=== PATIENT | male | born 1925 | race Caucasian/White ===

== ENCOUNTER 2016-08-29 11:59 | Inpatient (IN) | payer MEDICARE, BC ==
--- NOTE | ~2016-08-29 | EKG ---
PATIENT: IAN AUGUSTE UNIT #: [id number] Ventricular Rate: 83 BPM Atrial Rate: 83 BPM P-R Interval: 140 ms QRS Duration: 98 ms Q-T Interval: 374 ms QTC Calculation(Bezet): 439 ms Calculated R [place]: -20 degrees Calculated T [place]: 37 degrees Diagnosis Line: Normal sinus rhythm Diagnosis Line: Normal ECG Diagnosis Line: Diagnosis Line: Confirmed by LEONELA WATTERS MD ([id number]) on Diagnosis Line: 09/01/2016 1:26:00 PM INTERPRETING MD: DUONG GONZALEZ
--- NOTE | ~2016-08-29 | CT71 ---
[facility] A Service [facility] RADIOLOGY TEXT RESULTS PATIENT: IAN AUGUSTE LOCATION: [facility] : [birth year] UNIT #: [id number] AGE: [address]: Shruti Noble MD SEX: M ORDER DR: [id number] [address] [address] [id number] E MR#: [id number] Acc #: [id number] NAME: IAN AUGUSTE : 1925 SEX: M STUDY DATE/TIME: 08/29/2016 12:39 UNIT: SED ROOM: STUDY DESCRIPTION: CT Head Wo Contrast Attending Physician: (Res) Bhargav Bedolla Referring Physician: (Res) Bhargav Bedolla Ordering Physician: (Res) Bhargav Bedolla Primary Care Physician: Tal Zhang M.D. MEDICAL IMAGING REPORT This report is preliminary unless electronic signature is present. EXAM CT head without contrast. INDICATIONS Dizziness for a few days. TECHNIQUE CT of the head was performed without contrast. This CT exam was performed with one or more of the following radiation dose reduction techniques: automatic exposure control, adjustment of mA and/or kV according to patient size, and iterative reconstruction. COMPARISON Comparison is made with 03/09/2015. FINDINGS There are stable chronic white matter changes. There is no evidence for intracranial hemorrhage, acute cortical based infarction, focal mass lesion, or hydrocephalus. The included orbits and paranasal sinuses are unremarkable. The bone windows are unremarkable. IMPRESSION No acute intracranial abnormality. Dictated by... Ayden Schulte M.D. THIS IS AN ELECTRONICALLY VERIFIED REPORT Ayden Schulte M.D. at 08/30/2016 3:48 PM GABE/yaw [facility] A Service [facility] RADIOLOGY TEXT RESULTS PATIENT: IAN AUGUSTE LOCATION: [facility] [id number] : [birth year] UNIT #: [id number] AGE: [address]: Shruti Noble MD SEX: M ORDER DR: TD: 08/29/2016 23:50 JOB #: [id number] MEDICAL IMAGING REPORT Page 1 of 1
--- NOTE | ~2016-08-29 | CO ---
Unit #: [id number] #: [id number] Patient: IAN AUGUSTE [id number] [address] [place], [place] [address] [id number] I MR#: [id number] NAME: IAN AUGUSTE. ROOM: 473 Age: 89 Sex: M Admission Date: 08/29/2016 : 1925 Attending Physician: Shruti Noble M.D. Primary Care Physician: Tal Zhang M.D. CONSULTATION REPORT REASON FOR CONSULTATION Pneumonia. CHIEF COMPLAINT Weakness and patient could not stand up. HISTORY OF PRESENT ILLNESS An 89-year-old male with a past medical history of arthritis, rheumatoid arthritis, Alzheimer, dyslipidemia, anxiety, and depression, presented with the complaint of leg weakness and has been admitted. A CT chest showed patchy infiltrates. I am seeing the patient at bedside. He denies any headache, blurry vision, or chest pain. PAST MEDICAL HISTORY 1. Hypertension. 2. Alzheimer. 3. Gastroesophageal reflux disease. 4. Anxiety and depression. 5. Likely COPD. 6. Prostate hypertrophy. SOCIAL HISTORY Ex-smoker. No alcohol and no drug abuse. FAMILY HISTORY None as per record. MEDICATIONS As per MAR and have been reviewed. ALLERGIES Reviewed. PHYSICAL EXAMINATION VITAL SIGNS: Temperature 98, pulse 87, respirations 12, and blood pressure 130/70. NEUROLOGICAL: Awake, alert, and oriented at baseline. CARDIOVASCULAR: S1 plus S2. RESPIRATORY: Bilateral air entry, bilateral mild rhonchi. GASTROINTESTINAL: Nontender and soft. Bowel sounds positive. EXTREMITIES: No edema. DIAGNOSTIC STUDIES IMAGING: CT chest without contrast showed patchy infiltrates. Unit #: [id number] #: [id number] Patient: IAN AUGUSTE ASSESSMENT 1. Pneumonia. 2. Small pericardial effusion. 3. Spinal stenosis. PLAN At this point, my plan is to continue patient on Levaquin. Order procalcitonin levels and sputum for culture and sensitivity. Continue bronchodilator. GI and DVT prophylaxis. Physical therapy. We will continue to monitor. Please see orders for detailed plans. Thank you very much for this consultation. Dictated by... Nader Braxton TD: 08/30/2016 18:31 JOB #: [id number] CONSULTATION REPORT Page 1 of 1 X Ayesha Vyas MD CONSULTATION REPORT
--- NOTE | ~2016-08-29 | CR72 ---
[facility]. [facility] A Service of [facility] & [facility] RADIOLOGY TEXT RESULTS PATIENT: IAN AUGUSTE LOCATION: [place] [address] : [birth year] UNIT #: [id number] AGE: [address]: Shruti Noble MD SEX: M ORDER DR: [id number] [address] [address] [id number] E MR#: [id number] Acc #: [id number] NAME: IAN AUGUSTE : 1925 SEX: M STUDY DATE/TIME: 08/29/2016 12:49 UNIT: SED ROOM: STUDY DESCRIPTION: CR Chest Single View Portable Attending Physician: (Res) Bhargav Bedolla Referring Physician: (Res) Bhargav Bedolla Ordering Physician: (Res) Bhargav Bedolla Primary Care Physician: Tal Zhang M.D. MEDICAL IMAGING REPORT This report is preliminary unless electronic signature is present. EXAM Portable chest. INDICATION Cough today and dizziness. COMPARISON Comparison with 09/26/2012. FINDINGS There are patchy densities in the right mid and lower zone. Left lung is clear. Heart size is stable. Stable deformity of the left shoulder. IMPRESSION There are hazy densities in the right mid and lower zones which may represent pneumonia. Follow up to clearing is recommended. Dictated by... Ayden Schulte M.D. THIS IS AN ELECTRONICALLY VERIFIED REPORT Ayden Schulte M.D. at 08/30/2016 3:48 PM Guzman TD: 08/29/2016 23:58 JOB #: [id number] MEDICAL IMAGING REPORT Page 1 of 1
--- NOTE | ~2016-08-29 | CT98 ---
[facility] A Service of [facility] RADIOLOGY TEXT RESULTS PATIENT: IAN AUGUSTE LOCATION: [facility] [address]-84 : [birth year] UNIT #: [id number] AGE: [address]: Shruti Noble MD SEX: M ORDER DR: [id number] [address] [address] [id number] E MR#: [id number] Acc #: [id number] NAME: IAN AUGUSTE. : 1925 SEX: M STUDY DATE/TIME: 08/29/2016 12:45 UNIT: SED ROOM: STUDY DESCRIPTION: CT Lumbar Spine Wo Cont Attending Physician: Bhargav Bedolla Referring Physician: Bhargav Bedolla Ordering Physician: Bhargav Bedolla Primary Care Physician: Tal Zhang M.D. MEDICAL IMAGING REPORT This report is preliminary unless electronic signature is present. EXAM CT lumbar spine without HISTORY Weakness for 5 years, back pain for a couple of weeks, dizzy for a few days, dementia and arthritis, history of cancer not otherwise indicated. TECHNIQUE This CT examination was performed with one or more of the following radiation dose reduction techniques: automatic exposure control, adjustment of mA and/or kV according to patient size, and iterative reconstruction. COMMENT CT of the lumbar spine performed in the axial plane followed by sagittal and coronal reconstructed images. No contrast. Plain film for comparison 03/01/2013. Sagittal alignment is essentially normal. There is a broad Schmorl node at the superior endplate of L2 which is probably chronic but better seen on the current CT than on plain films from 2013. If there is concern for recent progression, MRI could be obtained in follow up. There is severe loss of disc height at L3-4 with endplate spondylosis. I suspect some fusion across the L3-4 disc. Multilevel endplate spondylosis present with vacuum disc formation at L2-3 and L5-S1. Multilevel loss of intervertebral disc height present. Seen at the lung bases is parenchymal scarring, bronchiectasis and nonspecific, noncalcified soft tissue at the posteromedial right chest. This is adjacent to the T11 vertebral body and appears to erode or remodel the bone. Though the margins of the bone appear somewhat sclerotic, the concern is raised for slow-growing neoplasm with erosion into the bone. The soft tissue mass is somewhat rounded and measures about 2.5 x 2.1 cm [facility] A Service of [facility] RADIOLOGY TEXT RESULTS PATIENT: IAN AUGUSTE LOCATION: [facility] [address]-35 : [birth year] UNIT #: [id number] AGE: [address]: Shruti Noble MD SEX: M ORDER DR: ewa. Consider further evaluation with PET/CT or tissue diagnosis. At this time, I would suggest the patient undergo a chest CT. Also some soft tissue thickening partly seen more laterally in the right lower lobe. At T10-11, there is facet degenerative change, endplate spondylosis and mild bony effacement of the canal. At T11-12, there is mild facet degenerative change, endplate spondylosis. No bony canal compromise. At T12-L1, endplate spondylosis and [id number]-[id number] facet degenerative change. There is bony foraminal narrowing on the right but no bony canal stenosis. At L1-2, extensive endplate spondylosis. Mild facet degenerative change. Probably mild soft tissue effacement of the canal. There is bilateral bony foraminal narrowing. At L2-3, mild facet degenerative change, ligamentum flavum thickening with endplate spondylosis, disc bulging, vacuum disc formation. At least mild canal stenosis. At least some bony foraminal narrowing. At L3-4, modq-vu-[id number] facet degenerative change, moderate ligamentum flavum thickening, extensive endplate spondylosis and some disc bulging. Probably fairly severe canal stenosis and bilateral bony foraminal narrowing. At L4-5, facet degenerative change moderate, ligamentum flavum thickening, concentric disc bulging and spondylosis. I suspect fairly severe canal stenosis and there is bilateral foraminal impingement. At L5-S1, endplate spondylosis and disc bulging with facet degenerative change mild. Probably mild canal compromise and severe foraminal impingement. Atherosclerotic vascular calcifications are present. There is a large probable cyst right kidney partly seen. The CT scan is limited for assessment of the soft tissues when compared to MRI. IMPRESSION 1. There is a rounded soft tissue mass at the posterior medial visualized right lung base which appears to result in some erosion of the adjacent T12 vertebral body. This should be further evaluated. Neoplastic disease is in the differential. See the discussion above. Consider correlation with a PET/CT or tissue sampling. In the meantime, I would recommend at least correlation with a CT of the chest for further characterization of chest findings. There is lower lobe scarring and bronchiectatic change. There is some more nonspecific soft tissue thickening more laterally at the right lung base. 2. There is extensive lumbar degenerative disease with likely multilevel severe canal or foraminal impingement. The soft tissue component of canal compromise is suboptimally demonstrated on the CT scan and would STS. [facility] A Service of [facility] RADIOLOGY TEXT RESULTS PATIENT: IAN AUGUSTE LOCATION: [facility] [address]-38 : [birth year] UNIT #: [id number] AGE: [address]: Shruti Noble MD SEX: M ORDER DR: be best assessed further with an MRI. There is a broad Schmorl's node at the superior endplate of L2 which is probably chronic but if there is concern for more recent compression deformity the MRI would also be more helpful. STAT * RESULT Dictated by... Larissa Edmondson M.D. THIS IS AN ELECTRONICALLY VERIFIED REPORT Larissa Edmondson M.D. at 08/29/2016 7:11 PM KARINE/austin TD: 08/29/2016 14:22 JOB #: [id number] MEDICAL IMAGING REPORT Page 1 of 1
--- NOTE | ~2016-08-29 | CT57 ---
[facility]. [facility] A Service of [facility] & [facility] RADIOLOGY TEXT RESULTS PATIENT: IAN AUGUSTE LOCATION: [place] [address] : [birth year] UNIT #: [id number] AGE: [address]: Shruti Noble MD SEX: M ORDER DR: [id number] [address] [address] [id number] E MR#: [id number] Acc #: [id number] NAME: IAN AUGUSTE : 1925 SEX: M STUDY DATE/TIME: 08/29/2016 14:50 UNIT: SED ROOM: STUDY DESCRIPTION: CT Chest Wo Cont Attending Physician: Bhargav Bedolla Referring Physician: Bhargav Bedolla Ordering Physician: Bhargav Bedolla Primary Care Physician: Tal Zhang M.D. MEDICAL IMAGING REPORT This report is preliminary unless electronic signature is present. EXAM CT chest without contrast HISTORY Cough today. Infiltrate on chest x-ray today. Chronic weakness and back pain. TECHNIQUE This CT exam was performed with one or more of the following radiation dose reduction techniques: automatic control, adjustment of mA and/or kV according to patient size, and iterative reconstruction. FINDINGS CT chest without contrast demonstrates mild patchy nodular interstitial infiltrates in the central right upper lobe, and, to a lesser degree in the superior segment right lower lobe, likely infectious or inflammatory. There is also minimal subsegmental, subpleural atelectasis in the anterior and medial right lower lobe. No airspace consolidation in the remainder of the chest. No adenopathy. Small amount of loculated fluid in the lateral margin of the right major fissure. Small hiatal hernia. Small pericardial effusion measuring 7 mm over the anterior right cardiac margin. Bilateral renal cysts, measuring up to 6.4 cm in the right kidney and 2 mm nonobstructing stone in the lower pole right kidney. IMPRESSION 1. Mild patchy nodular subsegmental infiltrates in the right upper lobe and superior segment right lower lobe are likely infectious or inflammatory. 2. There is minimal subpleural atelectasis in the anterior and medial right lower lobe and there is minimal fluid in the lateral margin of the right major fissure. 3. No infiltrates or effusions on the left. No adenopathy. 4. Small pericardial effusion. Small hiatal hernia. [facility]. [facility] A Service of [facility] RADIOLOGY TEXT RESULTS PATIENT: IAN AUGUSTE LOCATION: [facility] [id number] : [birth year] UNIT #: [id number] AGE: [address]: Shruti Noble MD SEX: M ORDER DR: Dictated by... Jax Altman M.D. THIS IS AN ELECTRONICALLY VERIFIED REPORT Jax Altman M.D. at 08/30/2016 2:34 PM DFL/rnr TD: 08/30/2016 03:25 JOB #: [id number] MEDICAL IMAGING REPORT Page 1 of 1
--- NOTE | ~2016-08-29 | DS ---
Unit #: [id number] #: [id number] Patient: IAN SIMPSON [id number] [address] [place], [place] [address] [id number] I MR#: [id number] NAME: IAN SIMPSON ROOM: 473 Age: 89 Sex: M Admission Date: 08/29/2016 : 1925 Discharge Date: 09/01/2016 Attending Physician: Barbie Mosley M.D. Referring Physician: Bhargav Bedolla Primary Care Physician: Tal Zhang M.D. DISCHARGE SUMMARY PRINCIPAL DIAGNOSES 1. Right upper and lower lobe pneumonia likely gram negative. 2. 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 3. Lumbar spinal stenosis. 4. Hypertension, controlled. 5. Mild Alzheimer dementia. 6. Benign prostatic hypertrophy. 7. Gastroesophageal reflux disease. 8. Bronchiectasis. 9. Physical deconditioning. 10. Hard of hearing. 11. Anxiety and depression. 12. Posttraumatic stress disorder. 13. Urge incontinence. 14. Rheumatoid arthritis. [employer] Dr. Vyas, Pulmonology. PROCEDURES 1. CT of the head without contrast, on August 29, 2016, with no acute findings. 2. CT of the lumbar spine without contrast, on August 29, 2016, with a rounded soft tissue mass of the posterior medial right lung base with some erosion of the adjacent T12 vertebral body. Extensive lumbar degenerative disc disease with multilevel severe canal or foraminal impingement noted. 3. Chest x-ray, on August 29, 2016, with hazy densities in the right mid and lower lung zone. 4. CT of the chest without contrast, on August 29, 2016, with mild patchy nodular subsegmental infiltrates in the right upper lobe and right lower lobe. Some pleural atelectasis in the right lower lobe noted. A small pericardial effusion noted. Small hiatal hernia. 5. MRI of the lumbar spine without contrast on August 30, 2016 with multilevel lumbar degenerative changes, canal stenosis moderate to severe at L3-4 and moderate canal stenosis at L4-5. Multilevel foraminal impingement is severe. Lesion at T12 right paraspinous location was noted. 6. MRI of thoracic spine with and without contrast on August 31, 2016 with modest degenerative change with areas of slight canal narrowing. No evidence of canal stenosis or cord compression. There is a chronic T3 compression deformity with 10% height loss. No abnormal cord signal. There is an atypical appearance of discogenic change and marginal bridging osteophyte at T11, T12. No evidence of paraspinal Unit #: [id number] #: [id number] Patient: IAN SIMPSON mass. CLINICAL HISTORY AND HOSPITAL COURSE Mr. Simpson is a very nice, 89-year-old male who was brought to the emergency department after complaining of weakness and his leg giving out. In the emergency department, the patient underwent CT scan of the head and the lumbar spine. CT of the lumbar spine revealed questionable paranasal mass at the right T12 region. Chest x-ray and CT of the chest revealed pneumonia and he was subsequently admitted. In regards to the patient's pneumonia, he was started on empiric Rocephin. Dr. Vyas was consulted. The patient remained afebrile and WBC count decreased from 11.9 back to normal. He has been changed to Omnicef. I will note that patient was found to have dysphagia on bedside evaluation and underwent a video swallow study demonstrating mechanical dysphagia secondary to a cervical osteophyte. After discussion with the speech therapist in addition to the patient's family, we have opted to just simply modify the diet as outlined below, though, again, he is high risk for aspiration pneumonia. In regards to patient's questionable paraspinal mass, a MRI of the lumbar spine was done and this revealed only a portion of the mass. MRI of the thoracic spine was done, however, and did not reveal any mass just some discogenic change. I will note CEA was normal and PSA is currently pending but, again, there is no mass. In regards to patients' weakness, again, MRI of the lumbar spine was done and did reveal significant spinal stenosis. However, given the patient's age and his comorbidities, I do not think surgery would be indicated and the plan is to discharge to rehab. The patient also had some mildly elevated blood pressure. I placed him on a low dose of Norvasc and blood pressure is improved. This should be continued upon discharge. The patient will be discharged to rehab later today. DISCHARGE CONDITION Stable. DISCHARGE STATUS Discharged to rehab. DISCHARGE MEDICATIONS 1. Flomax 0.4 mg at bedtime. 2. Tylenol 650 mg p.o. q.6 p.r.n. for pain or headache. 3. Zoloft 150 mg daily. 4. Risperdal 1 mg each evening. 5. Norvasc 5 mg b.i.d. 6. Omnicef 300 mg p.o. b.i.d. to stop after doses on September 06, 2016. 7. Ditropan 5 mg at bedtime. 8. Mobic 7.5 mg daily p.r.n. for pain. 9. Galantamine 16 mg p.o. b.i.d. 10. Prilosec 20 mg at bedtime. 11. Viteyes one tablet twice daily. DISCHARGE INSTRUCTIONS The patient was instructed to follow a regular diet. However, in regards Unit #: [id number] #: [id number] Patient: IAN SIMPSON to consistency, he should have slick consistency with thins. He should alternate bite and drink and take small sips per cup. There should not be any use of straws. He can increase activity as tolerated. FOLLOWUP The patient will follow up with her primary care provider, Dr. Tal Zhang, upon discharge from rehab. He is high risk for readmission particularly in regards to his aspiration, which I have discussed with the patient and his daughter. Time spent on discharge 53 minutes. Dictated by... Barbie Mosley M.D. HARRY/karen TD: 09/01/2016 13:01 JOB #: [id number] DISCHARGE SUMMARY Page 1 of 1 X Barbie Mosley MD X DISCHARGE SUMMARY
--- NOTE | ~2016-08-29 | MR175 ---
[facility] A Service of [facility] RADIOLOGY TEXT RESULTS PATIENT: IAN AUGUSTE LOCATION: [facility] 473-01 : [birth year] UNIT #: [id number] AGE: [address]: Barbie Mosley MD SEX: M ORDER DR: [id number] [facility] [address]. [place], [place] [address] [id number] I MR#: [id number] Acc #: [id number] NAME: IAN AUGUSTE. : 1925 SEX: M STUDY DATE/TIME: 08/31/2016 19:34 UNIT: [facility] ROOM: [facility] STUDY DESCRIPTION: MR Thoracic WWo Contrast Attending Physician: Barbie Mosley M.D. Referring Physician: Bhargav Bedolla Ordering Physician: Barbie Mosley M.D. Primary Care Physician: Tal Zhang M.D. MRI CENTER REPORT This report is preliminary unless electronic signature is present. EXAM Thoracic spine MRI with and without contrast. DATE OF STUDY 08/31/2016 PROCEDURE Routine thoracic spine MR with and without contrast. COMPARISON Chest CT 08/29/[address] and MRI 08/29 and 08/30/2016, respectively. CLINICAL HISTORY 5-year history of leg weakness with a 2-year history of progressively worsening back pain. Recent fall a few days ago. In addition, MRI lumbar spine suggested a possible T12 paraspinous lesion and recommend a thoracic spine MRI. FINDINGS The possible right paraspinous lesion at T11-12 simply represented an unusual appearance of discogenic change and marginal osteophyte. There is no acute marrow edema. Cord signal is normal. Spine alignment is normal. There are areas of slight canal compromise secondary to discogenic change, including at T2-3, T4-5, and T8-9 but at no level is there substantial canal stenosis or true cord compression. Postcontrast images show no abnormal enhancement. There is a very slight chronic T3 upper endplate compression deformity with about 10% height loss but no more substantial or recent or acute [facility] A Service of [facility] RADIOLOGY TEXT RESULTS PATIENT: IAN AUGUSTE LOCATION: [facility] 473- : [birth year] UNIT #: [id number] AGE: [address]: Barbie Mosley MD SEX: M ORDER DR: appearing fracture is seen. IMPRESSION 1. Modest degenerative change with areas of slight canal narrowing but no substantial canal stenosis or cord compression. Mild T3 chronic compression deformity with about 10% height loss but no acute fracture. 2. No abnormal cord signal and no abnormal enhancement at any level. 3. The possible right paraspinous lesion at T11-12 seen on the lumbar spine MRI simply represents a mildly atypical appearance of discogenic change and a marginal bridging osteophyte. Dictated by... Trenton Watson M.D. THIS IS AN ELECTRONICALLY VERIFIED REPORT Trenton Watson M.D. at 09/02/2016 1:21 PM TEV/tmw TD: 09/01/2016 10:54 JOB #: [id number] MRI CENTER REPORT Page 1 of 1 COPY
--- NOTE | ~2016-08-29 | MR113 ---
[facility] A Service of [facility] & [facility] RADIOLOGY TEXT RESULTS PATIENT: IAN AUGUSTE LOCATION: [facility] 473-01 : [birth year] UNIT #: [id number] AGE: [address]: Shruti Noble MD SEX: M ORDER DR: [id number] [facility] [address] [place], [place] [address] [id number] I MR#: [id number] Acc #: [id number] NAME: IAN AUGUSTE. : 1925 SEX: M STUDY DATE/TIME: 08/30/2016 10:48 UNIT: [facility] ROOM: [facility] STUDY DESCRIPTION: MR Lumbar Wo Contrast Attending Physician: Shruti Noble M.D. Referring Physician: Bhargav Bedolla Ordering Physician: Shiloh Welch M.D. Primary Care Physician: Tal Zhang M.D. MRI CENTER REPORT This report is preliminary unless electronic signature is present. EXAM Lumbar spine MRI without HISTORY Spinal stenosis, leg weakness for 5 years. Increased back pain for 2 weeks. No known injury. COMMENT MRI of the lumbar spine performed without contrast using routine 1.5T imaging technique. Comparison CT scan 08/29/2016. Sagittal alignment is normal. Marrow signal intensity is unremarkable allowing for marrow endplate degenerative change most prominent at L3-4, type 2. Broad Schmorl's node at the superior endplate of L2 appears chronic. Conus medullaris terminates at L2 level and is normal in size and signal intensity and contour. Multilevel endplate spondylosis also most apparent at the L3-4 level where there is severe loss of disc height and disc desiccation. At L1-2, mild facet degenerative change bilaterally, concentric disc bulging, endplate spondylosis. No canal stenosis. Mild bilateral inferior foraminal narrowing. L2-3, mild concentric disc bulge, endplate spondylosis and facet degenerative change, mild canal stenosis. Small more focal central disc protrusion present. Mild inferior foraminal narrowing left greater than right. L3-4, szwn-sw-bdfajeqt facet degenerative change, mild ligamentum flavum thickening. Concentric desiccated disc osteophyte complex more focal right paramedian location. There is moderate left and djwxoorn-yv-yhexvb STS. [facility] A Service of [facility] & [facility] RADIOLOGY TEXT RESULTS PATIENT: IAN AUGUSTE LOCATION: [facility] 473-01 : [birth year] UNIT #: [id number] AGE: [address]: Shruti Noble MD SEX: M ORDER DR: right-side foraminal narrowing. There is mass effect on right greater than left lateral recess. There is kcxulsku-kf-lwlenv canal stenosis. L4-5, facet degenerative change moderate on the left, pxah-pp-nubdbrsz on the right with ligamentum flavum thickening. Concentric disc bulge with a broad posterior protrusion/extrusion more prominent left tivmeyscnr-np-pojcxbxkkgtjzx location. Moderate canal stenosis and mass effect on the left greater than right lateral recess. Severe left moderate right-side foraminal narrowing. L5-S1, mild facet degenerative change bilaterally, concentric disc bulge broad-based posterior protrusion with a more focal small central component. There is mild mass effect on left greater than right lateral recess. Mild effacement of the thecal sac and fairly severe right and left foraminal narrowing. Loss of disc height contributes to this. There is a large right renal mass partly seen probably a cyst smaller left renal mass partly seen probably a cyst. The lesion seen in the lower chest involving the T12 vertebral body is not studied on this examination. It is only partly seen on the coronal imaging and it should still be further evaluated with concern for neoplastic disease in the differential. The partly seen lesion on this study is heterogeneously high in signal intensity on T2-weighted imaging at least 2.6 x 2.4 cm dimension. It may be best assessed further with an MRI of the thoracic spine with and without contrast with attention to the T12 level. IMPRESSION 1. Multilevel lumbar degenerative changes detailed above. Canal stenosis is moderate to severe at the level of L3-4, more moderate canal stenosis at the level of L4-5. Multilevel foraminal impingement some of which is severe. No recent compression fracture. Please refer to the multilevel discussion above and correlate with the patient's symptoms. 2. Partly seen is the lesion at T12 right paraspinous location. Neoplastic disease is still in the differential and it is not well seen on the MRI. I would recommend correlation with an MRI of the thoracic spine with and without contrast. Attention to T12 paraspinous region recommended. STAT * RESULT Dictated by... Larissa Edmondson M.D. THIS IS AN ELECTRONICALLY VERIFIED REPORT aLrissa Edmondson M.D. at 08/30/2016 1:42 PM KARINE/austin [facility]. [facility] A Service of [facility] & [facility] RADIOLOGY TEXT RESULTS PATIENT: IAN AUGUSTE LOCATION: [facility] 473-01 : [birth year] UNIT #: [id number] AGE: [address]: Shruti Noble MD SEX: M ORDER DR: TD: 08/30/2016 13:29 JOB #: [id number] MRI CENTER REPORT Page 1 of 1 COPY
--- NOTE | ~2016-08-29 | HP ---
Unit #: [id number] #: [id number] Patient: IAN AUGUSTE [id number] [address] [place], [place] [address] [id number] I MR#: [id number] NAME: IAN AUGUSTE. ROOM: 473 Age: 89 Sex: M Admission Date: 08/29/2016 : 1925 Attending Physician: Shruti Noble M.D. Referring Physician: Bhargav Bedolla Primary Care Physician: Tal Zhang M.D. HISTORY AND PHYSICAL CHIEF COMPLAINT Weakness, could not stand up, leg gave out. DISCUSSION This is an 89-year-old gentleman who has a history of osteoarthritis, rheumatoid arthritis, hypertension, Alzheimer dementia, dyslipidemia, anxiety/depression, hard of hearing, acid reflux, posttraumatic stress disorder, benign prostatic hypertrophy, urge incontinence. He presented to [facility] emergency room with chief complaint of having generalized weakness. In the ER, he was found to be febrile, 101, and he was complaining of weakness. He said he could not stand up, leg gave out. On workup, because of fever, he had a CT scan of lumbar spine which shows extensive lumbar degenerative disc disease with multi-level severe canal stenosis. Eventually, for further workup, he underwent CT chest without contrast which shows mild patchy infiltrate, right upper lobe/right lower lobe infiltrates with small pericardial effusion and eventually had been admitted for further workup and evaluation. He is very hard of hearing. He said he is feeling weak, he could not stand up today, his leg gave out. He has a fever. He says he coughs once in awhile. Denies chest pain, diaphoresis, palpitations or any other complaint. PAST MEDICAL HISTORY 1. History of hypertension. 2. Alzheimer dementia. 3. GERD. 4. Anxiety/depression. 5. Posttraumatic stress disorder. 6. Urge incontinence. 7. Benign prostatic hypertrophy. 8. Hard of hearing. 9. Osteoarthritis/rheumatoid arthritis. 10. History of dyslipidemia in the past. 11. 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 12. History of cataract. PAST SURGICAL HISTORY 1. History of cataract extraction. 2. Hernia repair. 3. Skin cancer excision from the back. 4. (1) colonoscopy with excision of polyps. 5. Right total knee arthroplasty in 2012. SOCIAL HISTORY The patient does not smoke, does not drink alcohol. He lives at home Unit #: [id number] #: [id number] Patient: IAN AUGUSTE alone. He walks with a walker. FAMILY HISTORY Leukemia and colon cancer in the family. ALLERGIES Penicillin. MEDICATIONS Medication from home as followin. Multivitamin. 2. Galantamine. 3. Sertraline. 4. Omeprazole. 5. Oxybutynin. 6. Risperidone. 7. Flomax. 8. Meloxicam. Doses not available at this time. Will call the pharmacy to find the doses. REVIEW OF SYSTEMS All review of systems negative except as in History of Present Illness. PHYSICAL EXAMINATION GENERAL: Elderly man lying in the bed comfortably, currently not in any distress. He is alert, awake, oriented x1, not in any distress. CURRENT VITAL SIGNS: Temperature 101, heart rate 83, respiratory rate 16, blood pressure 116/60. Oxygen 95%. HEENT: Head is atraumatic, normocephalic. NECK: Supple. No JVD. HEART: S1, S2. Regular rate and rhythm. LUNGS: Clear to auscultation. No rhonchi, no wheezing. ABDOMEN: Soft, nontender, nondistended. Bowel sounds positive. EXTREMITIES: Inspection normal. No cyanosis, no clubbing, no edema. NEURO: No focal neurologic deficit. DIAGNOSTIC STUDIES IMAGING: CT scan of lumbar spine shows there is a rounded, soft tissue mass at the posterior medial right lung base. Extensive lumbar degenerative changes multi-level with canal stenosis. CT chest without contrast shows mild patchy infiltrate right upper lobe/right lower lobe. Small pericardial effusion. LABORATORY: Lactic acid level of 1.3, sodium 134, potassium 4, chloride 102, CO2 28, glucose 121, BUN 30, creatinine 1. LFTs within normal limits. INR is 1.1. Troponin less than 0.05. White count 11, hemoglobin 14, hematocrit 41, platelet 197. UA is negative. ASSESSMENT AND PLAN 1. Pneumonia with right upper lobe/right lower lobe infiltrate: Start patient on IV Levaquin. Ask pulmonary, Dr. Vyas, to evaluate. 2. Small pericardial effusion: Will get a 2D echocardiogram. Unit #: [id number] #: [id number] Patient: AUGUSTE,IAN E 3. CT lumbar spine shows extensive lumbar degenerative changes with multi-level spinal canal stenosis. Will get MRI of lumbar spine. 4. History of hypertension: Currently off medication. 5. History of Alzheimer dementia. 6. Gastroesophageal reflux disease. 7. Anxiety/depression/posttraumatic stress disorder. 8. History of urge incontinence/benign prostatic hypertrophy. 9. Hard of hearing. 10. Osteoarthritis/rheumatoid arthritis. 11. Deep venous thrombosis prophylaxis: Will place the patient on Lovenox. Dictated by Nader Pulliam/hemanth TD: 08/30/2016 09:19 JOB #: [id number] HISTORY AND PHYSICAL Page 1 of 1 X X HISTORY AND PHYSICAL
[~2016-08-29 11:59] MED LIST: ASPIRIN81 M2 PO; DICLOFENAC PO; DIPROLENE AF 0.15 GM TOP; DITROPAN5 MG PO; FLOMAX0.4 M1 PO; GALANTAMINE HBR8 MG PO; HCTZ PO; HYDROCHLOROTHIA25 MG PO; LIDODERM PATCH TOP; LORAZEPAM0.5 MG PO; MOBIC PO; NAPROSYN250 M1 PO; NORCO 5/325MG PO; PRILOSEC20 MG PO; REMINYL8 MG PO; RISPERIDONE PO; TYLOX 5/500 CAP1 CAP PO; UNKNOWN B/P MED; VITEYE PO; VITEYES PO; ZEGERID40 MG/PKT PO; ZOCOR PO; ZOLOFT PO
[2016-08-29] MEDS ORDERED: FOSAMAX (12:28)
[2016-08-29 12:44] LABS: URINE SOURCE CLEAN CATCH
[2016-08-29 12:46] LABS: MICRO INDICATED? NO; URINE APPEARANCE CLEAR; URINE BILIRUBIN NEG (NEG); URINE BLOOD NEG (NEG); URINE COLOR YELLOW; URINE GLUCOSE NEG (NORM); URINE KETONE NEG (NEG); URINE LEUKOCYTE ESTERASE NEG (NEG); URINE NITRATE NEG (NEG); URINE PROTEIN NEG (NEG); URINE SPECIFIC GRAVITY 1.015 (1.003-1.035); URINE UROBILINOGEN 0.2 MG/DL (NORM)
[2016-08-29 12:54] LABS: BASOPHIL% 0.1 % (0-2.5); EOSINOPHIL% 0.1 % (0.0-7.0); HEMATOCRIT 41.6 % (38.0-50.0); HEMOGLOBIN 14.2 gm/dL (13.0-16.0); LYMPHOCYTE# 0.6 X10e3 (1.0-3.5); LYMPHOCYTE% 4.7 % (17.0-45.0); MEAN CELL VOLUME 90.7 FL (83-96); MEAN CORPUSCULAR HGB CONC 34.2 g/dL (30-36); MONOCYTE# 0.6 X10e3 (0-1.0); MONOCYTE% 5.2 % (3.0-12.0); NEUTROPHIL# 10.7 X10e3 (1.5-7.1); NEUTROPHIL% 89.9 % (40-75); PLATELET COUNT 197 X10e3 (140-420); RED BLOOD COUNT 4.58 X10e (3.90-5.60); RED CELL DISTRIBUTION WIDTH 13.8 % (11.0-15.5); WHITE BLOOD COUNT 11.9 X10e3 (4.0-10.5)
[2016-08-29 12:55] LABS: INR 1.1; PROTHROMBIN TIME (PATIENT) 12.4 SECONDS (9.5-12.4)
[2016-08-29 12:56] LABS: DIFF IND NO
[2016-08-29 12:57] LABS: POC - CKMB 1.3 ng/mL (0.0-7.9); POC - TROPONIN <0.05 ng/mL (<=0.05)
[2016-08-29 13:02] LABS: PARTIAL THROMBOPLASTIN TIME 27.2 SECONDS (25.6-38.1)
[2016-08-29 13:05] LABS: ALBUMIN SERUM 4.2 g/dL (3.5-5.0); BILIRUBIN, DIRECT 0.1 mg/dL (0.0-0.2); BILIRUBIN,INDIRECT 0.5 mg/dL (0.0-0.9); BILIRUBIN,TOTAL 0.6 mg/dL (0.2-2.0); CALCIUM SERUM 9.1 mg/dL (8.4-10.2); GLOM FILT RATE Estimated 66.4 mL/min (>60); PROTEIN TOTAL SERUM 7.2 g/dL (6.0-8.3)
[2016-08-29] MEDS ORDERED: FLOMAX0.4 M1 DOB (20:43)
[2016-08-30 03:37] LABS: DIFF IND NO; HEMATOCRIT 37.7 % (38.0-50.0); HEMOGLOBIN 12.5 gm/dL (13.0-16.0); LYMPHOCYTE# 2.2 X10e3 (1.0-3.5); LYMPHOCYTE% 28.6 % (17.0-45.0); MEAN CELL VOLUME 91.7 FL (83-96); MEAN CORPUSCULAR HEMOGLOBIN 30.5 PG (28-34); MEAN CORPUSCULAR HGB CONC 33.2 g/dL (30-36); MEAN PLATELET VOLUME 8.1 FL (6.5-11.5); NEUTROPHIL# 5.6 X10e3 (1.5-7.1); NEUTROPHIL% 71.4 % (40-75); PLATELET COUNT 163 X10e3 (140-420); RED BLOOD COUNT 4.11 X10e (3.90-5.60); RED CELL DISTRIBUTION WIDTH 14.4 % (11.0-15.5); WHITE BLOOD COUNT 7.9 X10e3 (4.0-10.5)
[2016-08-30 03:59] LABS: BUN/CREATININE RATIO 23.33; CALCIUM SERUM 8.5 mg/dL (8.4-10.2); CREATININE SERUM 0.9 mg/dL (0.6-1.4); GLOM FILT RATE Estimated 75.5 mL/min (>60); POTASSIUM 3.5 mmol/L (3.5-5.1)
[2016-08-31 03:41] LABS: MEAN CORPUSCULAR HEMOGLOBIN 30.5 PG (28-34); MEAN CORPUSCULAR HGB CONC 32.5 g/dL (30-36); MEAN PLATELET VOLUME 8.4 FL (6.5-11.5); RED BLOOD COUNT 4.89 X10e (3.90-5.60); RED CELL DISTRIBUTION WIDTH 14.4 % (11.0-15.5)
[2016-08-31 03:44] LABS: HEMOGLOBIN 14.9 gm/dL (13.0-16.0)
[2016-08-31 04:06] LABS: BILIRUBIN,TOTAL 0.9 mg/dL (0.2-2.0); CALCIUM SERUM 9.5 mg/dL (8.4-10.2); CREATININE SERUM 0.8 mg/dL (0.6-1.4); GLOM FILT RATE Estimated 79.2 mL/min (>60); POTASSIUM 4.2 mmol/L (3.5-5.1); PROTEIN TOTAL SERUM 7.6 g/dL (6.0-8.3)
[2016-08-31 08:42] LABS: LEGIONELLA AG URINE NEG (NEG)
[2016-09-02 23:49] LABS: PSA, FREE 0.6 ng/mL (())
== END 2016-09-01 16:59 | DRG 178 ==
LOC: SED 11:59 → CEDOF 17:10 → C4C 19:38 → CEDOF 21:00 → UNDODEPER 08-31 19:00 → C4C 09-01 09:33
PROVIDERS: Emergency Medicine; Internal Medicine
PROC: B24BZZZ Ultrasonography of Heart with Aorta (ICD-10-PCS; principal; 2016-08-30)
DX: J15.6 Pneumonia due to other Gram-negative bacteria (principal); I31.3 Pericardial effusion (noninflammatory); G30.9 Alzheimer's disease, unspecified; F02.80 Dementia in other diseases classified elsewhere, unspecified severity, without behavioral disturbance, psychotic disturbance, mood disturbance, and anxiety; Z87.891 Personal history of nicotine dependence; R13.19 Other dysphagia; M25.78 Osteophyte, vertebrae; M48.06 Spinal stenosis, lumbar region; I10 Essential (primary) hypertension; N40.1 Benign prostatic hyperplasia with lower urinary tract symptoms; N39.41 Urge incontinence; K21.9 Gastro-esophageal reflux disease without esophagitis; J47.9 Bronchiectasis, uncomplicated; F43.10 Post-traumatic stress disorder, unspecified; H91.90 Unspecified hearing loss, unspecified ear; F41.9 Anxiety disorder, unspecified; F32.9 Major depressive disorder, single episode, unspecified; M06.9 Rheumatoid arthritis, unspecified; E78.5 Hyperlipidemia, unspecified; Z88.0 Allergy status to penicillin; Z98.49 Cataract extraction status, unspecified eye; Z80.6 Family history of leukemia; Z80.0 Family history of malignant neoplasm of digestive organs
CPT/HCPCS: 36415; 70450; 71010; 71250; 72131; 72148; 72157; 74230; 80048; 80053; 80076; 81003; 82308; 82378; 82553; 83605; 83690; 84153; 84154; 84484; 85025; 85027; 85610; 85730; 87040; 87449; 87899; 92526; 92610; 92611; 93005; 93306; 96374; 97116; 97162; 97166; 99285; A9577; G8978-GP; G8979-GP; G8987-GO; G8988-GO; G8996-GN; G8997-GN; G8998-GN; J0696; J1650; J1956

== ENCOUNTER → 2016-09-14 | Outpatient (CLI) | payer OTHER ==
[~2016-09-14] MED LIST changes: +FLOMAX0.4 M1 DOB; +FOSAMAX; +GALANTAMINE HBR16 MG PO; +MELOXICAM7.5 MG PO; +OMEPRAZOLE20 M1 PO; +POLYETHYLENE GLY1 GM PO; +RISPERDAL2 MG PO; +SERTRALINE HCL100 M1 PO
--- NOTE | ~2016-09-14 | US140 ---
[facility] A Service of [facility] & [facility] RADIOLOGY TEXT RESULTS PATIENT: IAN AUGUSTE LOCATION: [facility] : [birth year] UNIT #: [id number] AGE: [address]: Tru Gomez MD SEX: M ORDER DR: [id number] [facility] [address] [place], [place] [address] [id number] O MR#: [id number] Acc #: [id number] NAME: IAN AUGUSTE : 1925 SEX: M STUDY DATE/TIME: 09/14/2016 18:50 UNIT: [facility] ROOM: STUDY DESCRIPTION: [facility] Attending Physician: Tru Gomez M.D. Ordering Physician: Tru Gomez M.D. Primary Care Physician: Tal Zhang M.D. MEDICAL IMAGING REPORT This report is preliminary unless electronic signature is present EXAM Right upper extremity venous duplex 09/14/2016 HISTORY Right upper extremity edema for 4 days. Evaluate for deep vein thrombosis. TECHNIQUE Snow-scale images of the right upper extremity were obtained as well as Doppler waveform spectral analysis and color flow Doppler imaging. FINDINGS There is normal blood flow and compressibility in the right internal jugular vein as well as right subclavian, axillary, brachial and basilic veins. There is non-occlusive thrombus in the mid-right cephalic vein characteristic of superficial thrombophlebitis. IMPRESSION 1. No evidence of deep vein thrombosis in the right upper extremity. 2. Non-occlusive thrombus in the mid-right cephalic vein characteristic of superficial thrombophlebitis. STAT * RESULT Dictated by... Kendell Chowdhury M.D. THIS IS AN ELECTRONICALLY VERIFIED REPORT Kendell Chowdhury M.D. at 09/15/2016 10:33 AM KRT/pcl TD: 09/14/2016 19:25 [facility] A Service of [facility] & [facility] RADIOLOGY TEXT RESULTS PATIENT: IAN AUGUSTE LOCATION: [facility] #: [id number] : [birth year] UNIT #: [id number] AGE: [address]: Tru Gomez MD SEX: M ORDER DR: WILMER #: [id number] MEDICAL IMAGING REPORT Page 1 of 1 COPY
== END | disposition home or self-care (01) ==
LOC: CLAB 16:25
DX: R60.0 Localized edema (principal); I82.611 Acute embolism and thrombosis of superficial veins of right upper extremity
CPT/HCPCS: 93971

== ENCOUNTER 2016-11-15 12:26 | Inpatient (IN) | payer MEDICARE, BC ==
[~2016-11-15] VITALS: Ht 175.3 cm; Wt 84.0 kg
--- NOTE | ~2016-11-15 | CO ---
Unit #: [id number] #: [id number] Patient: IAN AUGUSTE [id number] [facility] [address] [place], [place] [address] [id number] I MR#: [id number] NAME: IAN AUGUSTE ROOM: 470 Age: 89 Sex: M Admission Date: 11/15/2016 : 1925 Attending Physician: Teddy Masterson M.D. Primary Care Physician: Tal Zhang M.D. Consultation Date: 11/16/2016 CONSULTATION REPORT REASON FOR CONSULTATION Left intertrochanteric hip fracture. HISTORY OF PRESENT ILLNESS The patient is a pleasant 89-year-old with a history of falling apparently sometime yesterday. The patient is a poor historian. The patient reports he was in his bathroom when he fell. Apparently, he laid on the floor all night and then was brought to [facility] yesterday for further evaluation. Ultimately, he was found to have a left intertrochanteric hip fracture. The patient reports he does have pain in his left hip. The patient rates is pain as a 10 on a scale of 1 to 10. He was not able to ambulate and still isn't. He denies any numbness, tingling, fever or chills. PAST MEDICAL HISTORY 1. History of pneumonia. 2. 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 3. Lumbar spinal stenosis. 4. Hypertension. 5. Dementia. 6. BPH. 7. GERD. 8. Anxiety/depression. 9. PTSD. 10. Rheumatoid arthritis. PAST SURGICAL HISTORY 1. Cataract surgery. 2. Hernia surgery. 3. Skin cancer excision. 4. Colonoscopy. 5. Right total knee arthroplasty. SOCIAL HISTORY The patient lives alone. He states that his son lives in town and checks on him frequently. He also has a daughter in town. He walks with a walker. FAMILY HISTORY Notable for colon cancer and leukemia. ALLERGIES Penicillin. Unit #: [id number] #: [id number] Patient: IAN AUGUSTE HOME MEDICATIONS 1. Zoloft. 2. Risperdal. 3. Mobic. 4. Prilosec. 5. Galantamine. 6. Tamika-Eyes. 7. Ditropan. 8. Flomax. REVIEW OF SYSTEMS CONSTITUTIONAL: The patient denies any weight gain or weight loss. EYES: Denies any double vision or blurred vision. LUNGS: Denies and shortness of air or chronic cough. CARDIOVASCULAR: Admits to any chest pain or irregular heartbeat. ABDOMEN: Denies any nausea or vomiting. MUSCULOSKELETAL: Admits to left hip pain and his left groin area. EXTREMITIES: Denies any clubbing, cyanosis or edema. NEUROLOGIC: Denies any numbness or tingling. Twelve complete systems in total were reviewed and negative other than above. PHYSICAL EXAMINATION GENERAL: Well developed, well nourished in no acute distress. VITAL SIGNS: Temperature 98.2, blood pressure 125/49, heart rate is 82 and regular, respirations 20. HEENT: Normocephalic, atraumatic. PERRLA. Extraocular movements intact. Conjunctivae clear. NECK: Supple. No thyromegaly. LUNGS: Clear to auscultation. No accessory muscle use. Equal expansion bilaterally. CARDIOVASCULAR: S1, S2. No gallops or rubs. ABDOMEN: Soft, nontender, nondistended. Positive bowel sounds. MUSCULOSKELETAL: Gait not appreciated. Examination of the patient's left lower extremity reveals his left lower extremity is shorter than and externally rotated. He does have a point of impact on his left hip consistent with his fall. There are no other masses or effusion. Range of motion was deferred because of known hip fracture. SKIN: Warm and dry and intact. NEUROLOGICAL: Awake and alert. PSYCHIATRIC: Mood and affect are normal. Patient is very cooperative. DIAGNOSTIC STUDIES IMAGING: X-rays shows the patient does have a left intertrochanteric hip fracture. LABORATORY: Sodium is 138, potassium 4.0, chloride 105, CO2 27, BUN 24, creatinine 0.9, glucose at 129, WBC 6.4, INR 1.1, hemoglobin 11.1. ASSESSMENT Left intertrochanteric hip fracture. PLAN Will plan for a Gamma nail. Will keep the patient NPO. Will get a consent for this procedure. I did explain the risks and expected outcome of the risks to include blood clot, infection, neurovascular deficit, leg discrepancy and even . The patient completely understands and wishes Unit #: [id number] #: [id number] Patient: IAN AUGUSTE to proceed. Dictated by... Collins Vargas P.A.-C- for Enoch Alejandra M.D. LCAUDIA/hemanth TD: 11/16/2016 09:23 JOB #: [id number] CONSULTATION REPORT Page 1 of 1 X X CONSULTATION REPORT
--- NOTE | ~2016-11-15 | CR150 ---
[facility] A Service of [facility] RADIOLOGY TEXT RESULTS PATIENT: IAN AUGUSTE LOCATION: [facility] : [birth year] UNIT #: [id number] AGE: [address]: OMAR VALDEZ V SEX: M ORDER DR: [id number] [facility] [address] [place], [place] [address] [id number] I MR#: [id number] Acc #: [id number] NAME: IAN AUGUSTE : 1925 SEX: M STUDY DATE/TIME: 11/15/2016 13:08 UNIT: [facility] ROOM: [facility] STUDY DESCRIPTION: CR Hip Min 2 Views Lt Attending Physician: Shruti Noble M.D. Ordering Physician: Chuckie Gil M.D. Primary Care Physician: Tal Zhang M.D. MEDICAL IMAGING REPORT This report is preliminary unless electronic signature is present EXAM Left hip series INDICATION Left hip pain since last night. PROCEDURE 2 views of the left hip. COMPARISON 03/09/2015 FINDINGS Comminuted intertrochanteric fracture of the left hip. No dislocation. Degenerative change in the lumbar spine. IMPRESSION Comminuted intertrochanteric fracture of the left hip. Dictated by... Tre Pearce M.D. THIS IS AN ELECTRONICALLY VERIFIED REPORT Tre Pearce M.D. at 11/17/2016 5:01 PM EED/hernando TD: 11/15/2016 22:37 JOB #: [id number] MEDICAL IMAGING REPORT [facility] A Service of [facility] RADIOLOGY TEXT RESULTS PATIENT: IAN AUGUSTE LOCATION: [facility] : [birth year] UNIT #: [id number] AGE: [address]: OMAR VALDEZ V SEX: M ORDER DR: Page 1 of 1 COPY
--- NOTE | ~2016-11-15 | EKG ---
PATIENT: IAN AUGUSTE UNIT #: [id number] Ventricular Rate: 75 BPM Atrial Rate: 75 BPM P-R Interval: 136 ms QRS Duration: 96 ms Q-T Interval: 384 ms QTC Calculation(Bezet): 428 ms P [place]: -21 degrees Calculated R [place]: 4 degrees Calculated T [place]: 38 degrees Diagnosis Line: Normal sinus rhythm Diagnosis Line: Incomplete right bundle branch block Diagnosis Line: Borderline ECG Diagnosis Line: When compared with ECG of 17-NOV-2016 16:27, Diagnosis Line: (unconfirmed) Diagnosis Line: No significant change was found Diagnosis Line: Confirmed by LEONELA WATTERS MD ([id number]) on Diagnosis Line: 11/20/2016 7:14:15 AM INTERPRETING MD: DUONG GONZALEZ
--- NOTE | ~2016-11-15 | CR150 ---
[facility] A Service [facility] RADIOLOGY TEXT RESULTS PATIENT: IAN AUGUSTE LOCATION: [facility] 470-01 : [birth year] UNIT #: [id number] AGE: [address]: OMAR VALDEZ V SEX: M ORDER DR: [id number] [facility] [address] [facility] [address] [place], [place] [address] [id number] I MR#: [id number] Acc #: [id number] NAME: IAN AUGUSTE : 1925 SEX: M STUDY DATE/TIME: 11/17/2016 10:26 UNIT: [facility] ROOM: [facility] STUDY DESCRIPTION: CR Hip Min 2 Views Lt Attending Physician: Omar Valdez M.D. Ordering Physician: Michel Stewart M.D. Primary Care Physician: Tal Zhang M.D. MEDICAL IMAGING REPORT This report is preliminary unless electronic signature is present EXAM Left intraoperative 11/17/2016, 10:26 hours. HISTORY Acute left hip fracture, 11/15/2016, intraoperative views demonstrating ORIF by Dr. Stewart. Fluoroscopy time 1 minute 17 seconds. COMPARISON 11/15/2016. FINDINGS Submitted for interpretation following a minute 17 seconds of fluoroscopy time are 4 intraoperative views of the left hip and femur, demonstrating placement of compression screw through the intertrochanteric region terminating in the left femoral head with intramedullary azar extending through the shaft of the femur. Alignment is anatomic. IMPRESSION 4 intraoperative views demonstrate ORIF of intertrochanteric fracture left hip following 1 minute and 17 seconds of fluoroscopy time. Dose is not recorded on the images. Dictated by... Carmen Arevalo M.D. THIS IS AN ELECTRONICALLY VERIFIED REPORT Carmen Arevalo M.D. at 11/17/2016 4:16 PM SMM/ryan TD: 11/17/2016 14:50 JOB #: [id number] MEDICAL IMAGING REPORT [facility] A Service of [facility] RADIOLOGY TEXT RESULTS PATIENT: IAN AUGUSTE LOCATION: [facility] 470- : [birth year] UNIT #: [id number] AGE: [address]: OMAR VALDEZ V SEX: M ORDER DR: Page 1 of 1 COPY
--- NOTE | ~2016-11-15 | CR106 ---
[facility] A Service of [facility] & [facility] RADIOLOGY TEXT RESULTS PATIENT: IAN AUGUSTE LOCATION: [facility] 470-01 : [birth year] UNIT #: [id number] AGE: [address]: NICOLA VALDEZUJ V SEX: M ORDER DR: [id number] [facility] [address] [place], [place] [address] [id number] I MR#: [id number] Acc #: [id number] NAME: IAN AUGUSTE : 1925 SEX: M STUDY DATE/TIME: 11/15/2016 13:09 UNIT: [facility] ROOM: [facility] STUDY DESCRIPTION: CR Femur 2 Views Lt Attending Physician: Shruti Noble M.D. Ordering Physician: Chuckie Gil M.D. Primary Care Physician: Tal Zhang M.D. MEDICAL IMAGING REPORT This report is preliminary unless electronic signature is present EXAM Left femur series INDICATIONS Left femoral pain since last night. PROCEDURE Four views left femur. COMPARISON None. FINDINGS Intertrochanteric fracture of the left hip. No other fractures seen along the pix-jb-qhhtbi portion of the femur. No dislocation. IMPRESSION Intertrochanteric fracture of the left hip. Dictated by... Tre Pearce M.D. THIS IS AN ELECTRONICALLY VERIFIED REPORT Tre Pearce M.D. at 11/17/2016 5:01 PM EED/gabrielle TD: 11/15/2016 22:38 JOB #: [id number] MEDICAL IMAGING REPORT Page 1 of 1 COPY
--- NOTE | ~2016-11-15 | EKG ---
PATIENT: IAN AUGUSTE UNIT #: [id number] Ventricular Rate: 74 BPM Atrial Rate: 74 BPM P-R Interval: 140 ms QRS Duration: 94 ms Q-T Interval: 382 ms QTC Calculation(Bezet): 424 ms P [place]: -1 degrees Calculated R [place]: -5 degrees Calculated T [place]: 31 degrees Diagnosis Line: Normal sinus rhythm Diagnosis Line: Incomplete right bundle branch block Diagnosis Line: Borderline ECG Diagnosis Line: When compared with ECG of 15-NOV-2016 13:02, Diagnosis Line: Premature ventricular complexes are no longer Diagnosis Line: Present Diagnosis Line: Confirmed by LEONELA WATTERS MD ([id number]) on Diagnosis Line: 11/18/2016 2:15:46 PM INTERPRETING MD: DUONG GONZALEZ
--- NOTE | ~2016-11-15 | HP ---
Unit #: [id number] #: [id number] Patient: IAN AUGUSTE [id number] [address] [address] [id number] I MR#: [id number] NAME: IAN AUGUSTE ROOM: [facility] Age: 89 Sex: M Admission Date: 11/15/2016 : 1925 Attending Physician: Shruti Noble M.D. Primary Care Physician: Tal Zhang M.D. HISTORY AND PHYSICAL CHIEF COMPLAINT Fall. HISTORY OF PRESENT ILLNESS The patient is an 89-year-old male with past medical history of hypertension, BPH, dysphagia, lumbar spinal stenosis, dementia, GERD, anxiety, depression, PTSD, rheumatoid arthritis, who presented to the emergency department for evaluation of the above. The patient is a poor historian. He apparently fell last night. He was unable to get up due to pain. He was apparently on the floor all night. He is unable to tell me the circumstances of the fall. He denies any fever. No cough or cold symptoms. No chest pain. He denies any vomiting or diarrhea. In the emergency department imaging studies showed a left intertrochanteric hip fracture. CPK was 307. He was given 1 L of normal saline as well as 0.5 mg of Dilaudid. He is being admitted to [facility] for evaluation and further treatment. PAST MEDICAL HISTORY 1. Admission to [facility] August 29-2016 for a pneumonia. 2. 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 3. Lumbar spinal stenosis. 4. Hypertension. 5. Dementia. 6. BPH. 7. GERD. 8. Anxiety/depression. 9. PTSD. 10. Rheumatoid arthritis. PAST SURGICAL HISTORY 1. Cataract surgery. 2. Hernia repair. 3. Skin cancer excision. 4. Colonoscopy. 5. Right total knee arthroplasty. SOCIAL HISTORY The patient lives alone. He states that his son lives in town and checks on him frequently. He has a daughter as well. He walks with a walker. Unit #: [id number] #: [id number] Patient: IAN AUGUSTE FAMILY HISTORY Family history is notable for colon cancer and leukemia. ALLERGIES Penicillin. HOME MEDICATIONS Include Zoloft, Risperdal, Mobic, Prilosec, galantamine, VitaEyes, Ditropan, Flomax. Home medications will need to be reviewed and verified. REVIEW OF SYSTEMS A complete review of systems is negative except as indicated in the HPI. The patient denies currently seeing a dat instructor. He is unsure if he has ever had a stress test or a cardiac catheterization. There is no stress test in [facility]. I do not see a cardiac catheterization either. DIAGNOSTIC STUDIES CARDIOVASCULAR: EKG shows sinus rhythm with occasional PVCs and a rate of 74 beats per minute. IMAGING: Left femur and left hip x-ray show an intertrochanteric fracture involving the left hip. Left knee x-ray shows no acute abnormality. LABORATORY: Complete blood count notable for hemoglobin and hematocrit of 12 and 34.7 respectively. Urinalysis is negative. Comprehensive metabolic panel notable for a glucose of 139, BUN and creatinine 27 and 1.3 respectively, albumin is 3.3. CPK is 307. INR is 1.1. PHYSICAL EXAMINATION VITAL SIGNS: Temperature is 99. Pulse 86. Respirations 16. Blood pressure 108/56. Oxygen saturation is 98% on room air. GENERAL: The patient is a male who is awake and alert, in no acute distress. HEENT: The head is atraumatic. Mucous membranes are moist. NECK: Neck is supple. Trachea is midline. CARDIOVASCULAR: Regular rate and rhythm. LUNGS: Lungs are clear to auscultation bilaterally with no increased work of breathing. ABDOMEN: Abdomen is soft, nontender and nondistended, with bowel sounds present in all four quadrants. EXTREMITIES: There is no pedal edema. The patient is tender to palpation in the left hip area. He has decreased range of motion secondary to pain. NEUROLOGIC: The patient is awake and alert. He is oriented to year. He is not sure of the month. He follows commands. He is moving all extremities. PSYCH: Mood and affect are normal. The patient is cooperative. SKIN: Skin of the examined areas is warm and dry. ASSESSMENT The patient is an 89-year-old male with: 1. Left hip fracture. The patient's revised Garcia Cardiac Risk Index is consistent with a 0.4% rate of cardiac , nonfatal myocardial infarction, nonfatal cardiac arrest based on the information available. 2. Status post fall. The patient's CPK is 307. The patient is unable Unit #: [id number] #: [id number] Patient: IAN AUGUSTE to provide any details regarding the fall. 3. Hypertension. 4. Benign prostatic hypertrophy. 5. Severe dysphagia. 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 He was instructed to follow a regular diet with slick consistency, thins. No straws. 6. Lumbar spinal stenosis. 7. Dementia. 8. Gastroesophageal reflux disease. 9. Anxiety and depression. 10. Post traumatic stress disorder. 11. Rheumatoid arthritis. PLAN 1. Admit to intermediate level. 2. N.p.o. after midnight. 3. Consult Dr. Alejandra regarding hip fracture. 4. Chest x-ray as part of preoperative evaluation. 5. Consult Dr. Mujica for cardiac clearance. 6. Bedrest. 7. Fall precautions. 8. P.r.n. morphine. 9. P.r.n. Zofran. 10. Normal saline at 75 mL an hour. 11. Repeat labs in the morning including CPK. 12. Additional workup and consultants based on above. Dictated by Nader Schroeder/myrna TD: 11/15/2016 17:06 JOB #: [id number] HISTORY AND PHYSICAL Page 1 of 1 X Shruti Noble MD X HISTORY AND PHYSICAL
--- NOTE | ~2016-11-15 | EKG ---
PATIENT: IAN AUGUSTE UNIT #: [id number] Ventricular Rate: 74 BPM Atrial Rate: 74 BPM P-R Interval: 140 ms QRS Duration: 90 ms Q-T Interval: 398 ms QTC Calculation(Bezet): 441 ms P [place]: -14 degrees Calculated R [place]: -15 degrees Calculated T [place]: 37 degrees Diagnosis Line: Sinus rhythm with occasional Premature ventricular Diagnosis Line: complexes Diagnosis Line: Otherwise normal ECG Diagnosis Line: When compared with ECG of 29-AUG-2016 12:25, Diagnosis Line: Premature ventricular complexes are now Present Diagnosis Line: Confirmed by LEONELA WATTERS MD ([id number]) on Diagnosis Line: 11/16/2016 8:56:43 AM INTERPRETING MD: DUONG GONZALEZ
--- NOTE | ~2016-11-15 | CO ---
Unit #: [id number] #: [id number] Patient: IAN AUGUSTE [id number] [facility]. [place], [place] [address] [id number] I MR#: [id number] NAME: IAN AUGUSTE ROOM: 470 Age: 89 Sex: M Admission Date: 11/15/2016 : 1925 Attending Physician: Teddy Masterson M.D. Primary Care Physician: Tal Zhang M.D. Consultation Date: 11/16/2016 CONSULTATION REPORT REASON FOR CONSULT Pre-op clearance. HISTORY OF PRESENT ILLNESS The patient is an 89-year-old white male with a history of hypertension, BPH, dysphagia, mild dementia, GERD, anxiety, depression and rheumatoid arthritis. The patient came to the [facility] ED after he had suffered a fall and fractured his left hip. The patient fell at home. He states that he just got up and his leg buckled, and he tripped over something that was in front of him and fell. The patient states that he could not get to a phone and was not able to get up for quite some time and lay there for until apparently his neighbor realized he was down, and they brought him into the hospital. The patient does live alone; however, he has a son who is on the road [facility] and checks in when he can, and then he has a daughter who lives in [place] who comes down as much as she can, usually every couple of weeks and during the summer she is here more, as she is a teacher. The patient states he did not have any chest pain, pressure or tightness prior to this fall. No dizziness, lightheadedness or syncopal episode. He also did not pass out with the fall. He states that he walks at home with a walker or a cane, whichever he decides to use and normally does pretty well. The patient's daughter also confirms that he walks with a walker or a cane and that he normally does not fall and she is not aware of any complaint of any kind of chest pain or pressure. Last fall was a few years ago where he tripped over a pair of jeans that was lying in his floor. The patient had an echo in August of this year, which showed an EF of 60%, impaired LV relaxation, right ventricular systolic pressure of 44, consistent with mild pulmonary hypertension, severely dilated right ventricle, moderately reduced RV systolic function, mild aortic regurgitation, moderate tricuspid regurgitation and a small pericardial effusion. The patient's daughter and the patient both state he has never had a stress test or a cardiac cath for any reason. Cardiology was consulted for pre-op clearance, as the patient needs to have gamma nail surgery to the left hip. PAST MEDICAL HISTORY 1. Hypertension. 2. BPH. Unit #: [id number] #: [id number] Patient: IAN AUGUSTE 3. Dysphagia. 4. Lumbar spine stenosis. 5. Mild dementia. 6. GERD. 7. Anxiety. 8. Depression. 9. Rheumatoid arthritis. 10. Pneumonia in August of this year where he was hospitalized. SURGICAL HISTORY 1. Right knee surgery in 2012. 2. Cataract surgery. 3. Hernia repair. 4. Skin cancer excision. 5. Colonoscopy. SOCIAL HISTORY The patient does live alone. His daughter states that he has [place] home health services where they come out and do housekeeping for him, light housework, food prep, and he also has [employer] that deliver his meals to his house. Patient is not responsible for his own cooking. The patient does do his own personal care where he cleans himself, dresses himself and is able to get around his home and get food when he needs it. Daughter states that any falls that he has ever had have been related to tripping over something that he has left in the floor but never because he got lightheaded, dizzy or had any kind of anginal symptoms. The patient has never been a smoker. No alcohol or other drug abuse. The patient does walk with a walker or a cane at home depending on what he feels like he needs. FAMILY HISTORY Daughter states that there is no coronary disease known in the family. Mom had leukemia. Dad had lung cancer, and he does have significant history for colon cancer but nothing for coronary disease. ALLERGIES Penicillin. HOME MEDICATIONS 1. Mobic 7.5 mg p.o. daily in the evening as needed for pain. 2. Viteyes 1 tab p.o. b.i.d. 3. Galantamine p.o. before breakfast for memory. 4. Omeprazole, no dose listed, daily. 5. Ditropan 5 mg 1 tab p.o. t.i.d. 6. MiraLAX daily. 7. Risperdal 0.5 mg tab p.o. at bedtime. 8. Sertraline 150 mg p.o. before breakfast. 9. Flomax 0.4 mg 2 caps p.o. at bedtime. REVIEW OF SYSTEMS A 10-point review of systems negative except for what is listed above in the HPI. PHYSICAL EXAMINATION GENERAL: This is an 89-year-old white male who is alert and oriented x3 in no apparent distress. VITAL SIGNS: Blood pressure is 137/46, temperature 98.8, pulse 81, respirations 18. Unit #: [id number] #: [id number] Patient: IAN AUGUSTE HEENT: Pupils are equal, round and reactive. Oral mucosa is moist. NECK: No JVD. No thyromegaly. No lymphadenopathy. No carotid bruits. HEART: S1, S2. No S3, S4. No clicks. No rubs. No murmurs. LUNGS: Clear. ABDOMEN: Soft. Bowel sounds positive. Nontender. Nondistended. EXTREMITIES: Left hip with pain and bruising. No edema noted. Pulses are palpable. NEUROLOGIC: No neuro deficits noted except for pain and weakness in the left leg due to fracture. DIAGNOSTIC TESTING LABORATORY STUDIES: Sodium 138, potassium 4, chloride 105, CO2 27, glucose 129, BUN 24, creatinine 0.9. INR 1.1. White count 6.4, hemoglobin 11.1, hematocrit 32.1, platelets 179. UA showed no leukocytes or nitrites. IMAGING: Left hip x-ray shows comminuted intertrochanteric fracture of the left hip. Left knee showed no acute findings. Chest x-ray shows borderline to mild cardiomegaly with emphysema and chronic lung changes. No pulmonary edema or overload. CARDIOVASCULAR: EKG showed sinus rhythm with a single PVC noted. No acute ST wave abnormalities. IMPRESSION 1. Fall with left hip fracture. 2. Hypertension. 3. LVEF 60% in August of 2016. 4. Mild dementia. 5. Mild pulmonary hypertension with an RVSP of 44. 6. Mild aortic regurgitation and moderate tricuspid regurgitation. 7. Reduced RV systolic function. PLAN With the patient having had an echo in August of this year, there is no need to repeat it. Dr. Fishman saw the patient at bedside and has deemed the patient at high-risk for coronary disease with advanced age; however, in the absence of any kind of chest pain or other anginal symptoms, there is no need for cardiac cath or further investigation at this time. The patient is at moderate risk to undergo the surgery with advanced age, as well as hypertension and likely coronary disease. Will check EKG and troponin in the morning following surgery. Will check labs in the morning. Will start the patient on Lipitor 20 mg p.o. daily, as well as Toprol XL 25 mg p.o. daily. This plan was discussed with the daughter over the phone, as well as the patient at bedside. Both have verbalized understanding. Will follow the patient in his postop period to check for any kind of anginal symptoms or rhythm changes. Further recommendations pending the patient's hospital course. Dictated by... Tamika Galicia APRN for Nader Dickson Unit #: [id number] #: [id number] Patient: IAN AUGUSTE TD: 11/16/2016 11:23 JOB #: [id number] CONSULTATION REPORT Page 1 of 1 X X CONSULTATION REPORT
--- NOTE | ~2016-11-15 | CR172 ---
[facility] A Service of [facility] RADIOLOGY TEXT RESULTS PATIENT: IAN AUGUSTE LOCATION: [facility] 470-01 : [birth year] UNIT #: [id number] AGE: [address]: NICOLA VALDEZUJ V SEX: M ORDER DR: [id number] [facility] [address] [facility]. [place], [place] [address] [id number] I MR#: [id number] Acc #: [id number] NAME: IAN AUGUSTE : 1925 SEX: M STUDY DATE/TIME: 11/15/2016 13:10 UNIT: [facility] ROOM: [facility] STUDY DESCRIPTION: CR Knee 3 Views Lt Attending Physician: Shruti Noble M.D. Ordering Physician: Chuckie Gil M.D. Primary Care Physician: Tal Zhang M.D. MEDICAL IMAGING REPORT This report is preliminary unless electronic signature is present EXAM Left knee series INDICATIONS Left knee pain after a fall last night. PROCEDURE Two views of the left knee. COMPARISON None. FINDINGS No acute fracture or dislocation. IMPRESSION No acute findings. Dictated by... Tre Pearce M.D. THIS IS AN ELECTRONICALLY VERIFIED REPORT Tre Pearce M.D. at 11/17/2016 5:01 PM EED/gabrielle TD: 11/15/2016 22:40 JOB #: [id number] MEDICAL IMAGING REPORT Page 1 of 1 COPY
--- NOTE | ~2016-11-15 | OR ---
Unit #: [id number] #: [id number] Patient: IAN SIMPSON [id number] [address] [address] [id number] I MR#: [id number] NAME: IAN SIMPSON ROOM: 470 Date of Procedure: 11/17/2016 Admission Date: 11/15/2016 Surgeon: Michel Stewart M.D. : 1925 Attending Physician: Teddy Masterson Primary Care Physician: Tal Zhang M.D. OPERATIVE REPORT PREOPERATIVE DIAGNOSIS Left subtrochanteric hip fracture. POSTOPERATIVE DIAGNOSIS Left subtrochanteric hip fracture. PROCEDURE PERFORMED Left hip cephalomedullary nail with Cynthia Natural Nail. APPLICATION CHEMIST None. ANESTHESIA General with LMA. COMPLICATIONS None. SPECIMENS None. DRAINS None. SURGICAL IMPLANTS Cynthia Natural Nail 11.5 mm diameter with 125-degree neck shaft angle. 40 cm in length. 105 mm hip screw. Single distal locking screw. INDICATION FOR PROCEDURE Mr. Simpson is an 89-year-old male who lives by himself with mild dementia. The patient apparently fell, injuring his left hip. The patient was brought to the emergency room, where x-rays were taken. He had an intertrochanteric with subtrochanteric extension fracture of the hip joint. He was admitted to the Medical Service and cleared for surgery. It was felt that he would benefit from cephalomedullary nail. Risks, benefits, and alternatives of surgery were discussed with the patient. Informed consent was obtained. Risks include, but not limited to, infection, bleeding, nerve injury, blood clots, risks associated with anesthesia, need for further surgery, and possibly . DESCRIPTION OF PROCEDURE Unit #: [id number] #: [id number] Patient: IAN SIMPSON On 11/17/2016, the patient was seen in the preoperative holding area, where his surgical site was marked. Preoperative antibiotics were received. H and P and consent updated. He was taken to the operating room and provided general anesthesia. He was carefully moved to the fracture table. Left leg was placed in traction. It was then prepped and draped in typical sterile fashion. Time-out performed confirming the correct surgical site and procedure. Fluoroscopy confirmed appropriate reduction of the fracture site. It was felt a long nail would be most appropriate with this subtrochanteric extension. Incision was made just proximal to greater trochanter. Starting awl was placed on the tip of the trochanter and inserted into the femur. Guidewire was advanced down the femur canal distally to the knee. It was confirmed on fluoroscopy. Starting reamer followed by sequential reaming performed up to a 13 mm. It was felt 11.5-mm nail would be most appropriate. Appropriate measurements taken and the nail was advanced. A second incision made for the hip screw. A guidewire was removed. A drill tip guidewire was then advanced through the second incision to the center-center position of the femoral head. It was then measured and reamed, and hip screw placed. Set screw placed and locked, followed by backing off by quarter turn. Traction was released on the hip compressing across the fracture site of the subtrochanteric region. Focus was now placed distally. Perfect circles technique performed. Single bicortical proximal locking screw was placed. It was checked on both AP and lateral planes. Once this was complete, all instruments were removed. Wound was thoroughly irrigated. Three wounds closed with series of 0, 2-0 Vicryl suture, followed by rosalina for skin. Xeroform, 4x4s, ABD pad, and tape were placed. Final images were taken, confirming appropriate placement of hardware and reduction of fracture. The patient was taken to PACU postoperatively in stable condition. POSTOPERATIVE PLAN The patient will be weightbearing as tolerated on left lower extremity. He will have standard 24-hour antibiotic protocol. He will have 2 weeks of Lovenox for DVT prophylaxis. He will need rehab. He will have SCDs. No complications were encountered during the surgical procedure. Dictated by... Michel Stewart M.D. DENISE/shahnaz TD: 11/18/2016 02:34 JOB #: [id number] OPERATIVE REPORT Page 1 of 1 X X PROCEDURE OPERATIVE NOTE
--- NOTE | ~2016-11-15 | CR72 ---
[facility] A Service of [facility] RADIOLOGY TEXT RESULTS PATIENT: IAN AUGUSTE LOCATION: [facility] 470-01 : [birth year] UNIT #: [id number] AGE: [address]: COURTNEYOMAR V SEX: M ORDER DR: [id number] [facility] [address] [facility]. [place], [place] [address] [id number] I MR#: [id number] Acc #: [id number] NAME: IAN AUGUSTE : 1925 SEX: M STUDY DATE/TIME: 11/15/2016 15:50 UNIT: [facility] ROOM: [facility] STUDY DESCRIPTION: CR Chest Single View Portable Attending Physician: Shruti Noble M.D. Ordering Physician: Shruti Noble M.D. Primary Care Physician: Tal Zhang M.D. MEDICAL IMAGING REPORT This report is preliminary unless electronic signature is present EXAM Frontal chest, 11/15/2016 INDICATION 89-year-old male presenting for preop evaluation for left femur surgery after a fall 2 days ago. TECHNIQUE Frontal chest performed. Correlation is made with CT 08/29/2016. FINDINGS Cardiac silhouette is enlarged but stable. The lungs are emphysematous. There is underlying fibrosis and scarring in both lungs. No effusion or dense consolidation and no pneumothorax. There is old healed granulomatous disease. 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 IMPRESSION 1. Borderline to mild cardiomegaly with emphysema and chronic lung changes. No definite superimposed active disease. No pneumothorax. 2. Chronic post-traumatic deformity left humerus. Dictated by... Jimbo Price M.D. THIS IS AN ELECTRONICALLY VERIFIED REPORT Jimbo Price M.D. at 11/16/2016 11:42 AM Med TD: 11/16/2016 00:12 JOB #: [id number] [facility] A Service of [facility] RADIOLOGY TEXT RESULTS PATIENT: IAN AUGUSTE LOCATION: [facility] 470-01 : [birth year] UNIT #: [id number] AGE: [address]: OMAR VALDEZ V SEX: M ORDER DR: MEDICAL IMAGING REPORT Page 1 of 1 COPY
--- NOTE | ~2016-11-15 | DS ---
Unit #: [id number] #: [id number] Patient: IAN AUGUSTE [id number] [address] [place], [place] [address] [id number] I MR#: [id number] NAME: IAN AUGUSTE ROOM: [facility] Age: 89 Sex: M Admission Date: 11/15/2016 : 1925 Discharge Date: 11/19/2016 Attending Physician: Teddy Masterson M.D. Primary Care Physician: Tal Zhang M.D. DISCHARGE SUMMARY PERTINENT HISTORY AND HOSPITAL COURSE The patient is an 89-year-old man with a history of significant for BPH, lumbar spinal stenosis, dementia who had a fall at home and was unable to get up. In the emergency department, the patient was noted to have a left intertrochanteric hip fracture. Orthopedics was consulted and he underwent an open reduction internal fixation with gamma nail for correction of the left intertrochanteric hip fracture. The patient was on DVT prophylaxis with Lovenox 40 mg subcutaneous daily. Currently, the patient requires physical therapy and occupational therapy. He is weightbearing as tolerated. He is to have on and dressing change to the left hip daily, and he is to follow up with his orthopedist in two weeks as well as duration of Lovenox for DVT prophylaxis for two weeks. He is currently stable for transfer to subacute rehab at [facility]. DISCHARGE MEDICATIONS 1. Flomax 0.8 mg p.o. at bedtime. 2. Tylenol 325 mg p.o. q.4 p.r.n. 3. Lovenox 40 mg subcutaneous once daily. 4. Zoloft 150 mg p.o. once daily. 5. Diphenhydramine 25 mg p.o. q.8 p.r.n. for itching. 6. Risperdal 0.5 mg tab one p.o. at bedtime. 7. Metoprolol 25 mg p.o. daily. 8. Dulcolax suppository 10 mg rectal suppository p.r.n. for constipation. 9. Colace 100 mg tab one p.o. twice daily. 10. MiraLax 17 g p.o. daily. 11. Ditropan 5 mg p.o. twice daily. 12. Lipitor 20 mg p.o. at bedtime. 13. Multivitamin tab one p.o. twice daily. 14. Hydrocodone 5/325 mg tab one p.o. q.4 p.r.n. for pain. 15. Razadyne ER 16 mg p.o. once daily. 16. Protonix 40 mg p.o. once daily. DISCHARGE INSTRUCTIONS 1. The patient is to be transferred to [facility]acute [facility]. 2. He is to follow up with his orthopedic surgeon in two weeks. 3. Duration of DVT prophylaxis, Lovenox, two weeks. 4. Physical therapy and occupational therapy. Dictated by... Unit #: [id number] #: [id number] Patient: IAN AUGUSTE M.D. AVM/ch TD: 11/19/2016 11:28 JOB #: [id number] DISCHARGE SUMMARY Page 1 of 1 X X DISCHARGE SUMMARY
[~2016-11-15 12:26] MED LIST changes: -GALANTAMINE HBR16 MG PO; -MELOXICAM7.5 MG PO; -OMEPRAZOLE20 M1 PO; -POLYETHYLENE GLY1 GM PO; -RISPERDAL2 MG PO; -SERTRALINE HCL100 M1 PO
[2016-11-15 13:44] LABS: BASOPHIL% 0.1 % (0-2.5); EOSINOPHIL% 0.1 % (0.0-7.0); HEMATOCRIT 34.7 % (38.0-50.0); LYMPHOCYTE# 0.5 X10e3 (1.0-3.5); MEAN CELL VOLUME 89.6 FL (83-96); MEAN CORPUSCULAR HGB CONC 34.6 g/dL (30-36); MEAN PLATELET VOLUME 7.5 FL (6.5-11.5); MONOCYTE# 0.5 X10e3 (0-1.0); MONOCYTE% 6.1 % (3.0-12.0); NEUTROPHIL# 7.3 X10e3 (1.5-7.1); NEUTROPHIL% 87.7 % (40-75); PLATELET COUNT 193 X10e3 (140-420); RED BLOOD COUNT 3.87 X10e (3.90-5.60); RED CELL DISTRIBUTION WIDTH 13.7 % (11.0-15.5); WHITE BLOOD COUNT 8.4 X10e3 (4.0-10.5)
[2016-11-15 13:48] LABS: DIFF IND NO
[2016-11-15 13:48] LABS: URINE SOURCE CLEAN CATCH
[2016-11-15 13:55] LABS: URINE APPEARANCE CLEAR; URINE BILIRUBIN NEG (NEG); URINE BLOOD NEG (NEG); URINE COLOR YELLOW; URINE GLUCOSE NORM (NORM); URINE KETONE NEG (NEG); URINE LEUKOCYTE ESTERASE NEG (NEG); URINE NITRATE NEG (NEG); URINE PROTEIN NEG (NEG); URINE SPECIFIC GRAVITY 1.015 (1.003-1.035); URINE UROBILINOGEN NORM (NORM)
[2016-11-15 13:58] LABS: CULTURE INDICATED? NO
[2016-11-15 14:06] LABS: ALBUMIN SERUM 3.3 g/dL (3.5-5.0); BILIRUBIN, DIRECT 0.1 mg/dL (0.0-0.2); BILIRUBIN,INDIRECT 0.7 mg/dL (0.0-0.9); BILIRUBIN,TOTAL 0.8 mg/dL (0.2-2.0); BUN/CREATININE RATIO 20.76; CALCIUM SERUM 8.9 mg/dL (8.4-10.2); CREATININE SERUM 1.3 mg/dL (0.6-1.4); GLOM FILT RATE Estimated 48.4 mL/min (>60); POTASSIUM 4.5 mmol/L (3.5-5.1); PROTEIN TOTAL SERUM 6.3 g/dL (6.0-8.3)
[2016-11-15 14:17] LABS: INR 1.1; PARTIAL THROMBOPLASTIN TIME 26.6 SECONDS (23.5-31.3); PROTHROMBIN TIME (PATIENT) 11.9 SECONDS (10.0-11.7)
[2016-11-15] MEDS ORDERED: GALANTAMINE HBR16 MG PO (15:13)
[2016-11-15] MEDS ORDERED: MELOXICAM7.5 MG PO (15:14)
[2016-11-15] MEDS ORDERED: OMEPRAZOLE20 M1 PO (15:15)
[2016-11-15] MEDS ORDERED: DITROPAN5 MG PO (15:16)
[2016-11-15] MEDS ORDERED: POLYETHYLENE GLY1 GM PO (15:17)
[2016-11-15] MEDS ORDERED: RISPERDAL2 MG PO (15:18)
[2016-11-15] MEDS ORDERED: SERTRALINE HCL100 M1 PO (15:18)
[2016-11-15] MEDS ORDERED: FLOMAX0.4 M1 PO (15:19)
[2016-11-16 02:53] LABS: HEMATOCRIT 32.1 % (38.0-50.0); HEMOGLOBIN 11.1 gm/dL (13.0-16.0); MEAN CELL VOLUME 89.8 FL (83-96); MEAN CORPUSCULAR HEMOGLOBIN 31.1 PG (28-34); MEAN CORPUSCULAR HGB CONC 34.6 g/dL (30-36); MEAN PLATELET VOLUME 7.6 FL (6.5-11.5); RED BLOOD COUNT 3.58 X10e (3.90-5.60); RED CELL DISTRIBUTION WIDTH 13.7 % (11.0-15.5); WHITE BLOOD COUNT 6.4 X10e3 (4.0-10.5)
[2016-11-16 03:08] LABS: INR 1.1
[2016-11-16 03:23] LABS: ALBUMIN SERUM 3.1 g/dL (3.5-5.0); BILIRUBIN,TOTAL 0.7 mg/dL (0.2-2.0); BUN/CREATININE RATIO 26.66; CALCIUM SERUM 8.6 mg/dL (8.4-10.2); CREATININE SERUM 0.9 mg/dL (0.6-1.4); GLOM FILT RATE Estimated 75.5 mL/min (>60); PROTEIN TOTAL SERUM 5.9 g/dL (6.0-8.3)
[2016-11-17 04:07] LABS: CALCIUM SERUM 8.4 mg/dL (8.4-10.2); CREATININE SERUM 0.8 mg/dL (0.6-1.4); GLOM FILT RATE Estimated 79.2 mL/min (>60); MAGNESIUM 1.8 mg/dL (1.6-3.0); POTASSIUM 3.9 mmol/L (3.5-5.1)
[2016-11-18 03:53] LABS: HEMATOCRIT 26.2 % (38.0-50.0); HEMOGLOBIN 8.8 gm/dL (13.0-16.0); MEAN CELL VOLUME 90.4 FL (83-96); MEAN CORPUSCULAR HEMOGLOBIN 30.5 PG (28-34); MEAN CORPUSCULAR HGB CONC 33.8 g/dL (30-36); MEAN PLATELET VOLUME 8.3 FL (6.5-11.5); RED BLOOD COUNT 2.9 X10e (3.90-5.60); RED CELL DISTRIBUTION WIDTH 13.4 % (11.0-15.5); WHITE BLOOD COUNT 8.1 X10e3 (4.0-10.5)
[2016-11-18 04:19] LABS: BUN/CREATININE RATIO 37.14; CALCIUM SERUM 8.3 mg/dL (8.4-10.2); CREATININE SERUM 0.7 mg/dL (0.6-1.4); GLOM FILT RATE Estimated 83.7 mL/min (>60); MAGNESIUM 1.7 mg/dL (1.6-3.0); POTASSIUM 4.3 mmol/L (3.5-5.1)
[2016-11-19 03:44] LABS: HEMATOCRIT 25.2 % (38.0-50.0); HEMOGLOBIN 8.4 gm/dL (13.0-16.0); MEAN CELL VOLUME 91.3 FL (83-96); MEAN CORPUSCULAR HEMOGLOBIN 30.5 PG (28-34); MEAN CORPUSCULAR HGB CONC 33.5 g/dL (30-36); MEAN PLATELET VOLUME 8.5 FL (6.5-11.5); RED BLOOD COUNT 2.76 X10e (3.90-5.60); RED CELL DISTRIBUTION WIDTH 13.5 % (11.0-15.5); WHITE BLOOD COUNT 5.7 X10e3 (4.0-10.5)
[2016-11-19 04:08] LABS: BUN/CREATININE RATIO 27.5; CALCIUM SERUM 8.6 mg/dL (8.4-10.2); CREATININE SERUM 0.8 mg/dL (0.6-1.4); GLOM FILT RATE Estimated 79.2 mL/min (>60); MAGNESIUM 1.7 mg/dL (1.6-3.0); POTASSIUM 4.2 mmol/L (3.5-5.1)
== END 2016-11-20 00:05 | DRG 482 ==
LOC: CED 12:26 → CEDOF 15:00 → C4C 15:00 → CED 15:21 → CEDOF 15:21 → C4C 16:15
PROVIDERS: Emergency Medicine; Family Medicine; Orthopaedic Surgery
PROC: 0QS706Z Reposition Left Upper Femur with Intramedullary Internal Fixation Device, Open Approach (ICD-10-PCS; principal; 2016-11-17 09:00)
DX: S72.142A Displaced intertrochanteric fracture of left femur, initial encounter for closed fracture (principal); I27.2 Other secondary pulmonary hypertension; F03.90 Unspecified dementia, unspecified severity, without behavioral disturbance, psychotic disturbance, mood disturbance, and anxiety; Z88.0 Allergy status to penicillin; I10 Essential (primary) hypertension; N40.0 Benign prostatic hyperplasia without lower urinary tract symptoms; M48.06 Spinal stenosis, lumbar region; K21.9 Gastro-esophageal reflux disease without esophagitis; F41.9 Anxiety disorder, unspecified; F32.9 Major depressive disorder, single episode, unspecified; F43.10 Post-traumatic stress disorder, unspecified; M06.9 Rheumatoid arthritis, unspecified; Y93.9 Activity, unspecified; Y92.002 Bathroom of unspecified non-institutional (private) residence as the place of occurrence of the external cause; Z98.49 Cataract extraction status, unspecified eye; Z96.651 Presence of right artificial knee joint; W01.0XXA Fall on same level from slipping, tripping and stumbling without subsequent striking against object, initial encounter; I08.2 Rheumatic disorders of both aortic and tricuspid valves
CPT/HCPCS: 36415; 71010; 73502; 73552; 73562; 76001; 80048; 80053; 80076; 81003; 82550; 83735; 84484; 85025; 85027; 85610; 85730; 93005; 96361; 96374; 97110; 97163; 97167; 97530; 97535; 99284; C1713; G8978-GP; G8979-GP; G8987-GO; G8988-GO; J1170; J1650; J2270; J2405; J3010; J3370

== ENCOUNTER 2016-11-23 13:59 | Emergency (ER) | payer MEDICARE, BC ==
[~2016-11-23] VITALS: Ht 175.3 cm; Wt 74.8 kg
--- NOTE | ~2016-11-23 | CT57 ---
[facility] A Service of [facility] RADIOLOGY TEXT RESULTS PATIENT: IAN AUGUSTE LOCATION: [facility] : [birth year] UNIT #: [id number] AGE: [address]: Power Lopez MD SEX: M ORDER DR: [id number] [facility]. [place], [place] [address] [id number] E MR#: [id number] #: [id number] NAME: IAN AUGUSTE : 1925 SEX: M STUDY DATE/TIME: 11/23/2016 16:36 UNIT: [facility] ROOM: STUDY DESCRIPTION: CT Chest Wo Cont Attending Physician: Power Lopez M.D. Ordering Physician: Power Lopez M.D. Primary Care Physician: Tal Zhang M.D. MEDICAL IMAGING REPORT This report is preliminary unless electronic signature is present EXAM CT scan of the chest without contrast INDICATION Sent from detention for shaking all over, shortness of air, the patient is on 3 liters of oxygen with oxygen saturations in the 80s. TECHNIQUE Axial 5 mm images were obtained through the chest without contrast and compared with 08/29/2016. The thyroid gland is normal. Sagittal and coronal reconstructions were generated. This CT exam was performed with one or more of the following radiation dose reduction techniques: automatic exposure control, adjustment of mA and/or kV according to patient size, and iterative reconstruction. FINDINGS The aorta is normal in size and there is no adenopathy. The visualized portions of the upper abdomen show a 2.5 cm left renal cyst and otherwise unremarkable except for degenerative change in the lumbar spine. There are small right greater than left effusions with mild right base atelectasis. IMPRESSION 1. There are small right greater than left effusions. The right one is slightly loculated within the major fissure. There is minimal atelectasis in the right base. 2. Otherwise the study is negative. Dictated by... [facility] A Service [facility] RADIOLOGY TEXT RESULTS PATIENT: IAN AUGUSTE LOCATION: [facility] #: [id number] : [birth year] UNIT #: [id number] AGE: [address]: Power Lopez MD SEX: M ORDER DR: Juve Chowdary M.D. THIS IS AN ELECTRONICALLY VERIFIED REPORT Juve Chowdary M.D. at 11/24/2016 6:04 AM DIONE/hernando TD: 11/24/2016 04:50 JOB #: [id number] MEDICAL IMAGING REPORT Page 1 of 1 COPY
--- NOTE | ~2016-11-23 | CT71 ---
[facility] A Service of [facility] RADIOLOGY TEXT RESULTS PATIENT: IAN AUGUSTE LOCATION: [facility] : [birth year] UNIT #: [id number] AGE: [address]: Power Lopez MD SEX: M ORDER DR: [id number] [facility] [address] [place], [place] [address] [id number] E MR#: [id number] Acc #: [id number] NAME: IAN AUGUSTE : 1925 SEX: M STUDY DATE/TIME: 11/23/2016 16:33 UNIT: [facility] ROOM: STUDY DESCRIPTION: CT Head Wo Contrast Attending Physician: Power Lopez M.D. Ordering Physician: Power Lopez M.D. Primary Care Physician: Tal Zhang M.D. MEDICAL IMAGING REPORT This report is preliminary unless electronic signature is present EXAM Head CT, no contrast, 11/23/2016 INDICATION 89-year-old male sent from jail for shaking all over, placed on oxygen for decreased 02 sats in the 80s. Weakness, cough, symptoms began today. Hypertension and dementia. TECHNIQUE Noncontrast CT brain compared with 08/29/2016. This CT exam was performed with one or more of the following radiation dose reduction techniques: automatic exposure control, adjustment of mA and/or kV according to patient size, and iterative reconstruction. FINDINGS CT BRAIN: Exam degraded by motion. These were the best images possible. There is generalized atrophy. Sulci and ventricles are otherwise unremarkable. No midline shift. No evidence of acute intracranial hemorrhage. There is no mass, mass effect or edema to suggest acute infarct and no extraaxial fluid collections are present. Globes are intact. Bones are intact. Sinuses clear. There is chronic ischemic change in the periventricular and deep white matter similar to the prior study. IMPRESSION Atrophy and chronic ischemic changes. No clearly acute intracranial process. Dictated by... [facility] A Service [facility] RADIOLOGY TEXT RESULTS PATIENT: IAN AUGUSTE LOCATION: [facility] : [birth year] UNIT #: [id number] AGE: [address]: Power Lopez MD SEX: M ORDER DR: Jimbo Price M.D. THIS IS AN ELECTRONICALLY VERIFIED REPORT Jimbo Price M.D. at 11/24/2016 2:18 PM MATTHEW/hernando TD: 11/24/2016 05:17 JOB #: [id number] MEDICAL IMAGING REPORT Page 1 of 1 COPY
--- NOTE | ~2016-11-23 | EKG ---
PATIENT: IAN AUGUSTE UNIT #: [id number] Ventricular Rate: 84 BPM Atrial Rate: 84 BPM P-R Interval: 128 ms QRS Duration: 96 ms Q-T Interval: 392 ms QTC Calculation(Bezet): 463 ms P Ponce: 44 degrees Calculated R Ponce: 1 degrees Calculated T Ponce: 61 degrees Diagnosis Line: Sinus rhythm with Premature atrial complexes Diagnosis Line: Incomplete right bundle branch block Diagnosis Line: Nonspecific ST abnormality Diagnosis Line: Abnormal ECG Diagnosis Line: When compared with ECG of 18-NOV-2016 06:25, Diagnosis Line: Premature atrial complexes are now Present Diagnosis Line: ST elevation now present in Inferior leads Diagnosis Line: Confirmed by DRAKE BOND MD ([id number]) on 11/24/2016 Diagnosis Line: 11:44:04 PM INTERPRETING MD: VARUN GONZALEZ
--- NOTE | ~2016-11-23 | CR72 ---
[facility] A Service of [facility] RADIOLOGY TEXT RESULTS PATIENT: IAN AUGUSTE LOCATION: [facility] : [birth year] UNIT #: [id number] AGE: [address]: Power Lopez MD SEX: M ORDER DR: [id number] [facility] [address] [place], [place] [address] [id number] E MR#: [id number] Acc #: [id number] NAME: IAN AUGUSTE : 1925 SEX: M STUDY DATE/TIME: 11/23/2016 14:34 UNIT: [facility] ROOM: STUDY DESCRIPTION: CR Chest Single View Portable Attending Physician: Power Lopez M.D. Ordering Physician: Power Lopez M.D. Primary Care Physician: Tal Zhang M.D. MEDICAL IMAGING REPORT This report is preliminary unless electronic signature is present EXAM Portable chest, 11/23/2016 1434 hours CLINICAL HISTORY 89-year-old man with short shortness of air and diffuse body shaking all over today. History of hypertension, dementia. COMPARISON 11/15/2016 FINDINGS Portable upright chest demonstrates stable mild cardiomegaly and tortuous aorta. There is hazy parenchymal density at the right lung base new from the prior study. It has somewhat of a triangular shape with a well-defined linear superomedial margin. This could represent developing pneumonia, atelectasis or loculated fluid. The left lung is clear. Consider followup two-view chest film when possible. IMPRESSION There is a new density along the right heart border at the right lung base having a triangular shape of increased density and lucency along its medial aspect. There is overlying oxygen tubing as well. Question whether this represents developing pneumonia or atelectasis. The lucent area medially could indicate this is related to a bowel loop. Question diaphragmatic hernia. Consider followup two-view chest film to reassess. Dictated by... Carmen Arevalo M.D. THIS IS AN ELECTRONICALLY VERIFIED REPORT Carmen Arevalo M.D. at 11/26/2016 9:08 AM [address]S. [facility] A Service of [facility] RADIOLOGY TEXT RESULTS PATIENT: IAN AUGUSTE LOCATION: [facility] #: [id number] : [birth year] UNIT #: [id number] AGE: [address]: Power Lopez MD SEX: M ORDER DR: WENDY/hernando TD: 11/23/2016 22:41 JOB #: [id number] MEDICAL IMAGING REPORT Page 1 of 1 COPY
[~2016-11-23 13:59] MED LIST changes: +GALANTAMINE HBR16 MG PO; +MELOXICAM7.5 MG PO; +OMEPRAZOLE20 M1 PO; +POLYETHYLENE GLY1 GM PO; +RISPERDAL2 MG PO; +SERTRALINE HCL100 M1 PO
[2016-11-23 14:49] LABS: BASOPHIL% 0.2 % (0-2.5); DIFF IND YES; EOSINOPHIL# 0.1 X10e3 (0-0.7); EOSINOPHIL% 0.5 % (0.0-7.0); HEMATOCRIT 29.4 % (38.0-50.0); LYMPHOCYTE# 0.8 X10e3 (1.0-3.5); LYMPHOCYTE% 8.4 % (17.0-45.0); MEAN CELL VOLUME 91.3 FL (83-96); MEAN CORPUSCULAR HEMOGLOBIN 31.1 PG (28-34); MEAN CORPUSCULAR HGB CONC 34.1 g/dL (30-36); MEAN PLATELET VOLUME 8.3 FL (6.5-11.5); MONOCYTE# 0.7 X10e3 (0-1.0); MONOCYTE% 7.6 % (3.0-12.0); NEUTROPHIL# 8.2 X10e3 (1.5-7.1); NEUTROPHIL% 83.3 % (40-75); PLATELET COUNT 303 X10e3 (140-420); RED BLOOD COUNT 3.23 X10e (3.90-5.60); RED CELL DISTRIBUTION WIDTH 14.2 % (11.0-15.5); WHITE BLOOD COUNT 9.9 X10e3 (4.0-10.5)
[2016-11-23 14:58] LABS: INR 1.1; PARTIAL THROMBOPLASTIN TIME 30.9 SECONDS (23.5-31.3)
[2016-11-23 15:14] LABS: ALBUMIN SERUM 2.7 g/dL (3.5-5.0); BILIRUBIN, DIRECT 0.3 mg/dL (0.0-0.2); BILIRUBIN,INDIRECT 0.4 mg/dL (0.0-0.9); BILIRUBIN,TOTAL 0.7 mg/dL (0.2-2.0); CALCIUM SERUM 8.7 mg/dL (8.4-10.2); GLOM FILT RATE Estimated 66.4 mL/min (>60); POTASSIUM 4.2 mmol/L (3.5-5.1); PROTEIN TOTAL SERUM 6.1 g/dL (6.0-8.3)
[2016-11-23 15:16] LABS: ANISOCYTOSIS SL; PLATELET ESTIMATE NORMAL (NORMAL)
[2016-11-23 16:21] LABS: URINE SOURCE CLEAN CATCH
[2016-11-23 16:29] LABS: URINE APPEARANCE CLEAR; URINE BILIRUBIN NEG (NEG); URINE BLOOD TRACE (NEG); URINE COLOR YELLOW; URINE GLUCOSE NEG (NEG); URINE KETONE NEG (NEG); URINE LEUKOCYTE ESTERASE TRACE (NEG); URINE NITRATE NEG (NEG); URINE PROTEIN NEG (NEG); URINE SPECIFIC GRAVITY 1.018 (1.003-1.035)
[2016-11-23 16:33] LABS: URINE BACTERIA AUWI NEG (NEGATIVE); URINE SQUAMOUS EPITHELIAL CELL OCC /[HPF]
[2016-11-23 16:42] LABS: CULTURE INDICATED? NO
== END 2016-11-23 18:43 | disposition home or self-care (01) ==
LOC: CED 13:59
PROVIDERS: Emergency Medicine
DX: F03.90 Unspecified dementia, unspecified severity, without behavioral disturbance, psychotic disturbance, mood disturbance, and anxiety (principal); Z98.890 Other specified postprocedural states; Z88.0 Allergy status to penicillin
CPT/HCPCS: 36415; 51701; 70450; 71010; 71250; 80048; 80076; 81003; 83605; 85025; 85610; 85730; 87040; 93005; 99285